=== PATIENT | male | born 1970 | race American Indian/Alaskan Native ===

== ENCOUNTER 2019-08-10 15:47 | Emergency (ER) | payer MEDICARE, MEDICAID ==
[2019-08-10 15:55] VITALS: BP 174/94
[2019-08-10] MEDS ORDERED: KETOROLAC 60 MG/2 ML INJ IM ONE (16:38)
[2019-08-10] MEDS ORDERED: predniSONE 20 MG TAB PO ONE (16:38)
--- NOTE | 2019-08-10 16:47 | Emergency Department Report ---
ED Neck Pain/Injury HPI - General Chief Complaint: Extremity Problem,Nontraumatic Stated Complaint: RIGHT SIDE NUMBINESS Time Seen by Provider: 08/10/19 16:24 Mode of arrival: Ambulatory Limitations: No Limitations - History of Present Illness Initial Comments: This is a 49-year-old male nontoxic, well nourished in appearance, no acute signs of distress presents to the ED with c/o of intermittent neck pain with radiation to right arm. Stated pain is aching and has some tingling sensation to arm. Worse with movement and better with rest. Patient denies any trauma. Denies any bladder or bowel instability. Patient denies any urinary symptoms. Denies any fever, chills, nausea, vomiting, headache, stiff neck, chest pain or shortness of breath. Patient denies any numbness or tingling. Denies any allergies. Denies significant past medical history. MD Complaint: neck pain -: days(s) Radiation: right upper extremity Severity: mild Severity scale (0 -10): 3 Quality: aching, tingling Consistency: intermittent Improves With: immobilization Worsens With: movement of neck Associated Symptoms: none. denies: headache, fever, numbness, tingling, weakness, vertigo, difficulty walking, swollen glands, difficulty swallowing, nausea, vomiting Treatments Prior to Arrival: none - Related Data Previous Rx's Medication Instructions Recorded Last Taken Type Cyclobenzaprine [Flexeril] 10 mg PO QHS PRN #10 tablet 08/10/19 Unknown Rx Naproxen 500 mg PO Q12H PRN #15 tablet 08/10/19 Unknown Rx Allergies Allergy/AdvReac Type Severity Reaction Status Date / Time No Known Allergies Allergy Verified 08/10/19 15:49 ED Review of Systems ROS: Stated complaint: RIGHT SIDE NUMBINESS Other details as noted in HPI Constitutional: denies: chills, fever Eyes: denies: eye pain, eye discharge, vision change ENT: denies: ear pain, throat pain Respiratory: denies: cough, shortness of breath, wheezing Cardiovascular: denies: chest pain, palpitations Endocrine: no symptoms reported Gastrointestinal: denies: abdominal pain, nausea, diarrhea Genitourinary: denies: urgency, dysuria Musculoskeletal: arthralgia, other (neck pain). denies: back pain, joint swelling Skin: denies: rash, lesions Neurological: denies: headache, weakness, paresthesias Psychiatric: denies: anxiety, depression Hematological/Lymphatic: denies: easy bleeding, easy bruising ED Past Medical Hx - Past Medical History Previous Medical History?: Yes Hx Hypertension: Yes Additional medical history: burisitis - Surgical History Past Surgical History?: No - Social History Smoking Status: Current Every Day Smoker Substance Use Type: Marijuana - Medications Home Medications: Home Medications Medication Instructions Recorded Confirmed Last Taken Type Cyclobenzaprine [Flexeril] 10 mg PO QHS PRN #10 tablet 08/10/19 Unknown Rx Naproxen 500 mg PO Q12H PRN #15 tablet 08/10/19 Unknown Rx ED Physical Exam - General Limitations: No Limitations General appearance: alert, in no apparent distress - Head Head exam: Present: atraumatic, normocephalic - Eye Eye exam: Present: normal appearance - Neck Neck exam: Present: normal inspection, full ROM. Absent: tenderness, meningismus, lymphadenopathy - Extremities Exam Extremities exam: Present: normal inspection, full ROM, normal capillary refill. Absent: tenderness, joint swelling - Expanded Upper Extremity Exam Right General: Present: normal inspection Shoulder Exam: Present: normal inspection, full ROM. Absent: tenderness, swelling Upper Arm exam: Present: normal inspection, full ROM. Absent: tenderness, swelling Elbow exam: Present: normal inspection, full ROM. Absent: tenderness, swelling Forearm Wrist exam: Present: normal inspection, full ROM. Absent: tenderness, swelling Hand Wrist exam: Present: normal inspection, full ROM. Absent: tenderness, swelling Vascular: Present: vascular compromise, normal capillary refill - Back Exam Back exam: Present: normal inspection, full ROM, paraspinal tenderness (right sided cervical paraspinal). Absent: tenderness, CVA tenderness (R), CVA tenderness (L), muscle spasm, vertebral tenderness, rash noted - Expanded Back Exam Expanded Back exam: Absent: saddle anesthesia Back exam: Negative Straight Leg Raising: Left, Right - Neurological Exam Neurological exam: Present: alert, oriented X3, normal gait - Psychiatric Psychiatric exam: Present: normal affect, normal mood - Skin Skin exam: Present: warm, dry, intact, normal color. Absent: rash ED Course Vital Signs 08/10/19 08/10/19 15:49 17:15 Temperature 98.3 F Pulse Rate 61 Respiratory 18 18 Rate Blood Pressure 174/94 O2 Sat by Pulse 100 Oximetry - Reevaluation(s) Reevaluation #1: 08/10/19 16:47 Patient is speaking in full sentences with no signs of distress noted. ED Medical Decision Making - Medical Decision Making This is a 49-year-old male that presents with cervical back strain with radiculopathy. Patient is stable was examined by me. There is no midline spinal tenderness. Xrays obtaiend and dictated by the radiologist. Patient received Toradol 60 mg IM and prednisone in the ED which stated his symptoms has resolved and subsided. Patient is discharged with muscle relaxant and Motrin. Patient was instructed not to operate any machinery while taking muscle relaxant as they cause her drowsiness. Patient was referred to Follow-up with a primary care doctor in 3-5 days or if symptoms worsen and continue return to emergency room as soon as possible. At time of discharge, the patient does not seem toxic or ill in appearance. No acute signs of distress noted. Patient agrees to discharge treatment plan of care. No further questions noted by the patient. This chart is dictated with using [employer] Critical care attestation.: If time is entered above; I have spent that time in minutes in the direct care of this critically ill patient, excluding procedure time. ED Disposition Clinical Impression: Cervical stenosis of spine, Cervical radiculopathy Cervical strain Qualifiers: Encounter type: initial encounter Qualified Code(s): S16.1XXA - Strain of muscle, fascia and tendon at neck level, initial encounter Disposition: DC-01 TO HOME OR SELFCARE Is pt being admited?: No Does the pt Need Aspirin: No Condition: Stable Instructions: Muscle Strain (ED), Cervical Spinal Stenosis (ED), Cervical Radiculopathy (ED) Additional Instructions: Follow-up with a primary care doctor in 3-5 days or if symptoms worsen and continue return to emergency room as soon as possible. Take Naproxen and Flexeril as prescribed. Do not operate heavy machinery while taking Flexeril due to sedation Prescriptions: Cyclobenzaprine [Flexeril] 10 mg PO QHS PRN #10 tablet PRN Reason: Muscle Spasm Naproxen 500 mg PO Q12H PRN #15 tablet PRN Reason: Pain , Severe (7-10) Referrals: PRIMARY [facility] [Referring] - 3-5 Days LUCIANO MOSES MD [Staff Physician] - 3-5 Days [facility] [Provider Group] - 3-5 Days Forms: Work/School Release Form(ED)
--- NOTE | 2019-08-10 17:06 | XRay Report ---
Cervical spine 3 views INDICATION: Right neck and arm pain. IMPRESSION: Multilevel discogenic and uncovertebral arthropathy present of the lower cervical spine p rimarily C6-C7 causing mild bilateral neural foraminal stenosis at this level. No fracture. Signer Name: Kt Cook MD Signed: 08/10/2019 5:02 PM Workstation Name: [id number]
== END 2019-08-10 17:54 | disposition home or self-care (01) ==
LOC: ED 15:47
DX: S16.1XXA Strain of muscle, fascia and tendon at neck level, initial encounter (principal); M48.02 Spinal stenosis, cervical region; M54.12 Radiculopathy, cervical region; I10 Essential (primary) hypertension; F17.200 Nicotine dependence, unspecified, uncomplicated; F12.90 Cannabis use, unspecified, uncomplicated; Z79.899 Other long term (current) drug therapy; X58.XXXA Exposure to other specified factors, initial encounter; Y93.89 Activity, other specified; Y92.89 Other specified places as the place of occurrence of the external cause; Y99.8 Other external cause status
CPT/HCPCS: 72040; 96372; 99283; J1885; J7512

== ENCOUNTER 2021-12-06 09:13 | Emergency (ER) | payer MEDICARE ==
[2021-12-06 09:17] VITALS: BP 164/89
--- NOTE | 2021-12-06 13:02 | Emergency Department Report ---
- General Chief complaint: Skin/Abscess/Foreign Body Stated complaint: CYST ON BUTTOCKS Source: patient Mode of arrival: Ambulatory Limitations: No Limitations - History of Present Illness Initial comments: 51-year-old male presents to the ED complaining left buttocks abscess. Patient states that his like him to "maintain his buttocks" and a abscess to his left buttock. Patient denies any fever ,chills nausea or vomiting. States that he has been trying to expel the abscess without any success. Patient states pain is a current 7 out of 10. Patient is alert and oriented x3. No acute distress noted. No ill appearance noted. MD complaint: abscess/boil Onset/Timin -: month(s) Severity scale (0 -10): 7 Quality: aching Consistency: intermittent Improves with: none Worsens with: movement Context: none Associated symptoms: denies other symptoms - Related Data Previous Rx's Medication Instructions Recorded Last Taken Type Cyclobenzaprine [Flexeril] 10 mg PO QHS PRN #10 tablet 08/10/19 Unknown Rx Naproxen 500 mg PO Q12H PRN #15 tablet 08/10/19 Unknown Rx Ketorolac [Toradol] 10 mg PO Q6H PRN 5 Days #20 tab 12/06/21 Unknown Rx Sulfamethoxazole/Trimethoprim 1 each PO BID 10 Days #20 tab 12/06/21 Unknown Rx [Bactrim DS TAB] Allergies Allergy/AdvReac Type Severity Reaction Status Date / Time lisinopril Allergy Angioedema Verified 12/06/21 09:15 Abscess Boil HPI - HPI Chief Complaint: Skin/Abscess/Foreign Body Stated Complaint: CYST ON BUTTOCKS Home Medications: Previous Rx's Medication Instructions Recorded Last Taken Type Cyclobenzaprine [Flexeril] 10 mg PO QHS PRN #10 tablet 08/10/19 Unknown Rx Naproxen 500 mg PO Q12H PRN #15 tablet 08/10/19 Unknown Rx Ketorolac [Toradol] 10 mg PO Q6H PRN 5 Days #20 tab 12/06/21 Unknown Rx Sulfamethoxazole/Trimethoprim 1 each PO BID 10 Days #20 tab 12/06/21 Unknown Rx [Bactrim DS TAB] Allergies/Adverse Reactions: Allergies Allergy/AdvReac Type Severity Reaction Status Date / Time lisinopril Allergy Angioedema Verified 12/06/21 09:15 ED Review of Systems ROS: Stated complaint: CYST ON BUTTOCKS Other details as noted in HPI Constitutional: denies: chills, fever Eyes: denies: eye pain, eye discharge, vision change ENT: denies: ear pain, throat pain Respiratory: denies: cough, shortness of breath, wheezing Cardiovascular: denies: chest pain, palpitations Endocrine: no symptoms reported Gastrointestinal: denies: abdominal pain, nausea, diarrhea Genitourinary: denies: urgency, dysuria Musculoskeletal: denies: back pain, joint swelling, arthralgia Skin: lesions. denies: rash Neurological: denies: headache, weakness, paresthesias Psychiatric: denies: anxiety, depression Hematological/Lymphatic: denies: easy bleeding, easy bruising ED Past Medical Hx - Past Medical History Hx Hypertension: Yes Additional medical history: burisitis/ VISION - Surgical History Additional Surgical History: SHOULDER - Social History Smoking Status: Current Every Day Smoker Substance Use Type: Marijuana - Medications Home Medications: Home Medications Medication Instructions Recorded Confirmed Last Taken Type Cyclobenzaprine [Flexeril] 10 mg PO QHS PRN #10 tablet 08/10/19 Unknown Rx Naproxen 500 mg PO Q12H PRN #15 tablet 08/10/19 Unknown Rx Ketorolac [Toradol] 10 mg PO Q6H PRN 5 Days #20 tab 12/06/21 Unknown Rx Sulfamethoxazole/Trimethoprim 1 each PO BID 10 Days #20 tab 12/06/21 Unknown Rx [Bactrim DS TAB] ED Physical Exam - General Limitations: No Limitations General appearance: alert, in no apparent distress - Head Head exam: Present: atraumatic, normocephalic - Eye Eye exam: Present: normal appearance - ENT ENT exam: Present: mucous membranes moist - Neck Neck exam: Present: normal inspection - Respiratory Respiratory exam: Present: normal lung sounds bilaterally. Absent: respiratory distress - Cardiovascular Cardiovascular Exam: Present: regular rate, normal rhythm. Absent: systolic murmur, diastolic murmur, rubs, gallop - GI/Abdominal GI/Abdominal exam: Present: soft, normal bowel sounds - Rectal Rectal exam: Present: deferred - Extremities Exam Extremities exam: Present: normal inspection - Back Exam Back exam: Present: normal inspection - Neurological Exam Neurological exam: Present: alert, oriented X3 - Psychiatric Psychiatric exam: Present: normal affect, normal mood - Skin Skin exam: Present: warm, dry, intact, normal color. Absent: rash ED Course Vital Signs 12/06/21 09:16 Temperature 99.1 F Pulse Rate 91 H Respiratory 18 Rate Blood Pressure 164/89 O2 Sat by Pulse 98 Oximetry ED Medical Decision Making - Medical Decision Making 51-year-old male presents to the ED complaining left buttocks abscess. Patient states that his like him to "maintain his buttocks" and a abscess to his left buttock. Patient denies any fever ,chills nausea or vomiting. States that he has been trying to expel the abscess without any success. Patient states pain is a current 7 out of 10. Patient is alert and oriented x3. No acute distress noted. No ill appearance noted. Physical examination patient has a tender hard nodule noted to his left buttock. Attempted to I&D unsuccessful. No fluctuant noted to the area. Rechecked the patient is resting quietly , comfortable and feeling better. I discussed the results of diagnostic study, my clinical impression and the plan for further treatment with the patient. Patient agrees with plan and discharge at this present time. All question addressed. I have given the patient instruction regarding a diagnosis ,expectation ,follow- up and return precaution. I explained to the patient that emergent condition may arise and to return to the ED for new worsen and any new persisting condition. I have explained the importance of following up with the primary care physician or referral physician listed below has instructed. The patient verbalized understanding of discharge instruction. Critical care attestation.: If time is entered above; I have spent that time in minutes in the direct care of this critically ill patient, excluding procedure time. ED Disposition Clinical Impression: Abscess Disposition: 01 HOME / SELF CARE / HOMELESS Is pt being admited?: No Does the pt Need Aspirin: No Condition: Stable Instructions: Skin Abscess, [id number] Additional Instructions: Take medication has been Return to the ED for any worsening symptom Prescriptions: Sulfamethoxazole/Trimethoprim [Bactrim DS TAB] 1 each PO BID 10 Days #20 tab Ketorolac [Toradol] 10 mg PO Q6H PRN 5 Days #20 tab PRN Reason: Pain Referrals: [facility] [Provider Group] - 3-5 Days Forms: Work/School Release Form(ED) Time of Disposition: 13:04
== END 2021-12-06 13:15 | disposition home or self-care (01) ==
LOC: ED 09:13
DX: L02.31 Cutaneous abscess of buttock (principal); I10 Essential (primary) hypertension; F17.200 Nicotine dependence, unspecified, uncomplicated; F12.90 Cannabis use, unspecified, uncomplicated; Z88.8 Allergy status to other drugs, medicaments and biological substances; Z79.899 Other long term (current) drug therapy
CPT/HCPCS: 99282

== ENCOUNTER 2021-12-08 06:16 | Emergency (ER) | payer MEDICARE ==
[2021-12-08 06:26] VITALS: BP 97/66
[2021-12-08] MEDS ORDERED: LIDOCAINE-MPF (1%) 10 MG/1 ML VIAL 5 ML INFILTRATI ONE (08:37)
--- NOTE | 2021-12-08 08:41 | Emergency Department Report ---
ED General Adult HPI - General Chief complaint: Skin/Abscess/Foreign Body Stated complaint: BUTTOCKS ABSCESS Time Seen by Provider: 12/08/21 07:23 Source: patient Mode of arrival: Ambulatory Limitations: No Limitations - History of Present Illness Initial comments: 55-year-old male past medical history of hypertension reports to the ER with abscess to buttocks region for 3 weeks. Patient reports rupture happened last night and reports drainage. Patient denies fever. No weakness. Patient reports no other acute signs or symptoms at this moment. - Related Data Previous Rx's Medication Instructions Recorded Last Taken Type Cyclobenzaprine [Flexeril] 10 mg PO QHS PRN #10 tablet 08/10/19 Unknown Rx Naproxen 500 mg PO Q12H PRN #15 tablet 08/10/19 Unknown Rx Ketorolac [Toradol] 10 mg PO Q6H PRN 5 Days #20 tab 12/06/21 Unknown Rx Sulfamethoxazole/Trimethoprim 1 each PO BID 10 Days #20 tab 12/06/21 Unknown Rx [Bactrim DS TAB] Sulfamethoxazole/Trimethoprim 1 each PO BID 10 Days #20 tab 12/08/21 Unknown Rx [Bactrim DS TAB] Allergies Allergy/AdvReac Type Severity Reaction Status Date / Time lisinopril Allergy Angioedema Verified 12/06/21 09:15 ED Review of Systems ROS: Stated complaint: BUTTOCKS ABSCESS Other details as noted in HPI Comment: All other systems reviewed and negative Skin: other (Abscess buttocks area.) ED Past Medical Hx - Past Medical History Previous Medical History?: Yes Hx Hypertension: Yes (MEDICATED) Additional medical history: burisitis/ VISION - Surgical History Past Surgical History?: Yes Additional Surgical History: SHOULDER - Social History Smoking Status: Unknown if ever smoked Substance Use Type: None - Medications Home Medications: Home Medications Medication Instructions Recorded Confirmed Last Taken Type Cyclobenzaprine [Flexeril] 10 mg PO QHS PRN #10 tablet 08/10/19 Unknown Rx Naproxen 500 mg PO Q12H PRN #15 tablet 08/10/19 Unknown Rx Ketorolac [Toradol] 10 mg PO Q6H PRN 5 Days #20 tab 12/06/21 Unknown Rx Sulfamethoxazole/Trimethoprim 1 each PO BID 10 Days #20 tab 12/06/21 Unknown Rx [Bactrim DS TAB] Sulfamethoxazole/Trimethoprim 1 each PO BID 10 Days #20 tab 12/08/21 Unknown Rx [Bactrim DS TAB] ED Physical Exam - General Limitations: No Limitations General appearance: alert, in no apparent distress - Head Head exam: Present: atraumatic, normocephalic - Eye Eye exam: Present: normal appearance - ENT ENT exam: Present: mucous membranes moist - Neck Neck exam: Present: normal inspection - Respiratory Respiratory exam: Present: normal lung sounds bilaterally. Absent: respiratory distress - Cardiovascular Cardiovascular Exam: Present: regular rate, normal rhythm. Absent: systolic murmur, diastolic murmur, rubs, gallop - GI/Abdominal GI/Abdominal exam: Present: soft, normal bowel sounds - Rectal Rectal exam: Present: deferred - Extremities Exam Extremities exam: Present: normal inspection - Back Exam Back exam: Present: normal inspection - Neurological Exam Neurological exam: Present: alert, oriented X3 - Psychiatric Psychiatric exam: Present: normal affect, normal mood - Skin Skin exam: Present: warm, dry, intact, normal color, other (Abscess to left buttocks fold about 1 cm from rectal opening). Absent: rash ED Course Vital Signs 12/08/21 06:21 Temperature 98.8 F Pulse Rate 83 Respiratory 18 Rate Blood Pressure 97/66 O2 Sat by Pulse 99 Oximetry ED Medical Decision Making - Medical Decision Making 55-year-old male past medical history of hypertension reports to the ER with abscess to buttocks region for 3 weeks. Patient reports rupture happened last night and reports drainage. Patient denies fever. No weakness. Patient reports no other acute signs or symptoms at this moment. abscess noted to left buttocks. Drainage is present. No I&D is needed at this time. Patient started on Bactrim DS twice daily for 10 days. Patient given Rocephin 1 g IM. Patient informed to follow his primary care provider as needed. Patient informed if symptoms are to get worse or to experience a fever, increased swelling, weakness to report back to the ER. Patient agrees with plan of care verbalized understanding. Vital Signs 12/08/21 06:21 Temperature 98.8 F Pulse Rate 83 Respiratory 18 Rate Blood Pressure 97/66 O2 Sat by Pulse 99 Oximetry Critical care attestation.: If time is entered above; I have spent that time in minutes in the direct care of this critically ill patient, excluding procedure time. ED Disposition Clinical Impression: Abscess of buttock, left Disposition: 01 HOME / SELF CARE / HOMELESS Is pt being admited?: No Condition: Stable Instructions: Skin Abscess Prescriptions: Sulfamethoxazole/Trimethoprim [Bactrim DS TAB] 1 each PO BID 10 Days #20 tab
== END 2021-12-08 09:24 | disposition home or self-care (01) ==
LOC: ED 06:16
DX: L02.31 Cutaneous abscess of buttock (principal); I10 Essential (primary) hypertension; Z88.8 Allergy status to other drugs, medicaments and biological substances; Z79.899 Other long term (current) drug therapy
CPT/HCPCS: 99282; J0696; J3490